=== PATIENT | male | born 1950 | race Caucasian/White ===

== ENCOUNTER 2023-11-09 11:24 | Day surgery (SDC) | payer MEDICARE ==
[~2023-11-09] VITALS: Ht 175.3 cm; Wt 103.9 kg
[2023-11-09] MEDS ORDERED: ELIQUIS 5MG PO (11:59)
[2023-11-09] MEDS ORDERED: LOPRESSOR 225 MG/TAB PO (11:59)
[2023-11-09] MEDS ORDERED: K-TAB20 PO (12:00)
[2023-11-09] MEDS ORDERED: LASIX 20MG TABL20 MG PO (12:05)
[2023-11-09] MEDS ORDERED: CLARITIN 1010 MG/TAB PO (12:05)
[2023-11-09] MEDS ORDERED: FLOMAX 0.40.4 MG/CAP PO (12:06)
[2023-11-09] MEDS ORDERED: FLONASEALLERGY NS (12:06)
[2023-11-09] MEDS ORDERED: LIPITOR 80MG80 MG PO (12:07)
[2023-11-09] MEDS ORDERED: EPA FISH OIL1 SGL PO (12:07)
[2023-11-09] MEDS ORDERED: MULTI VITAMINS1 TAB PO (12:08)
[2023-11-09] MEDS ORDERED: TURMERIC500 MG PO (12:08)
[2023-11-09] MEDS ORDERED: LUTEIN20 M1 PO (12:09)
[2023-11-09] MEDS ORDERED: VITAMIND3 5000 PO (12:09)
[2023-11-09 12:11] VITALS: BP 109/73; PULSE 89; TEMP 98.2
[2023-11-09 12:12] LABS: BASO # 0.1 K/mm3 (0.0-0.2); BASO % 0.8 % (0.0-2.0); EOS # 0.2 K/mm3 (0.0-0.7); EOS % 3.9 % (0.0-4.0); GRAN # 3.6 K/mm3 (1.4-6.5); GRAN % 57.8 % (42.2-75.2); HEMATOCRIT 43.9 % (42.0-52.0); HEMOGLOBIN 14.8 g/dl (13.5-18.0); LYMPH # 1.8 K/mm3 (1.2-3.4); LYMPH % 29.1 % (20.0-51.0); MEAN CELL VOLUME 92 fl (80.0-100.0); MEAN CORPUSCULAR HEMOGLOBIN 31 pg (27-31); MEAN CORPUSCULAR HGB CONC 34 g/dl (33.0-37.0); MEAN PLATELET VOLUME 9.8 fl (7.4-10.4); MONO # 0.5 K/mm3 (0.1-0.6); MONO % 8.2 % (1.7-9.3); PLATELET COUNT 205 K/mm3 (130-400); REDCELL DISTRIBUTION WIDTH-CV 13.2 % (11.5-14.5)
[2023-11-09 12:16] LABS: INR 1.6 (0.8-3.0); PROTHROMBIN TIME 17.7 SECONDS (9.7-12.8)
[2023-11-09 12:18] LABS: PARTIAL THROMBOPLASTIN TIME 39.1 SECONDS (26.0-37.0)
[2023-11-09 12:28] LABS: MAGNESIUM 2.3 mg/dL (1.6-2.6)
[2023-11-09 12:34] LABS: POTASSIUM 4.5 mmol/L (3.5-4.5)
[2023-11-09 12:48] LABS: THYROID STIMULATING HORMONE 2.428 uIU/mL (0.350-4.940)
[2023-11-09 13:45] VITALS: BP 106/68; PULSE 83
[2023-11-09 13:55] VITALS: BP 108/61; PULSE 65
[2023-11-09 14:00] VITALS: BP 112/60; PULSE 75
[2023-11-09] MEDS ORDERED: ENTRESTO 24 MG1 EACH PO (14:26)
[2023-11-09 14:30] VITALS: BP 112/61; PULSE 91
--- NOTE | 2023-11-09 14:52 | NUR ---
Dischargeinstructions given to pt.Pt verbalizes understanding.Pt escorted out via wheelchair by this nurse.
== END 2023-11-09 14:53 ==
LOC: COL.CAR 11:24
PROVIDERS: Internal Medicine Cardiovascular Disease
DX: I48.19 Other persistent atrial fibrillation (principal); I50.9 Heart failure, unspecified; G47.33 Obstructive sleep apnea (adult) (pediatric); Z79.01 Long term (current) use of anticoagulants; Z79.899 Other long term (current) drug therapy
CPT/HCPCS: J2704; J7120